=== PATIENT | male | born 1975 | race Caucasian/White ===

== ENCOUNTER 2019-01-07 08:34 | Emergency (ER) | payer OTHER ==
[~2019-01-07] VITALS: Ht 175.3 cm; Wt 95.3 kg
== END 2019-01-07 09:31 | disposition home or self-care (01) ==
LOC: ER 08:34
DX: S09.8XXA Other specified injuries of head, initial encounter (principal); W18.39XA Other fall on same level, initial encounter; Y93.89 Activity, other specified; Y92.89 Other specified places as the place of occurrence of the external cause; Y99.8 Other external cause status; S59.801A Other specified injuries of right elbow, initial encounter